=== PATIENT | female | born 1950 | race Caucasian/White ===

== ENCOUNTER 2025-01-27 09:30 | Day surgery (SDC) | payer OTHER, SELFPAY ==
--- NOTE | 2025-01-03 10:49 | CM ---
CM reviewed medical records. CM spoke with patient via phone. Patient confirmed that she lives in [place]. Patient daughter or son will provide supervision.
Patient's son
Rodríguez
[phone]
Patient has had [facility] in the past but cannot remember the agency. Patient has not been to SNF. Patient has a cane and walker. Patient uses [facility] for medication services.
Patient was encouraged to make an outpatient PT appointment. Patient stated that she would prefer [facility] in [place].
Patient stated that she is very nervous and overwhelmed. CM provided emotional support and encouraged further questions as needed.
PLAN: home with outpatient PT, patient pending PA evaluation .
[2025-01-19 11:18] LABS: Hematocrit 32.6 % (37.0-47.0); Hemoglobin 10.6 g/dL (12.0-16.0); Mean Corp Hgb Conc. 32.5 g/dL (33.0-37.0); Mean Corpuscular Hgb 31.6 pg (27.0-31.0); Mean Corpuscular Volume 97.3 fL (81.0-99.0); Mean Platelet Volume 9.2 fL (7.4-10.4); Platelet Count 341 10^3/uL (130-400); Red Blood Cell Count 3.35 10^6/uL (4.20-5.40); Red Cell Dist. Width 14.4 % (11.5-14.5); White Blood Cell Count 6.3 10^3/uL (4.8-10.8)
[2025-01-19 12:03] LABS: ALT (SGPT) 12 U/L (0-35); AST (SGOT) 20 U/L (14-36); Alkaline Phosphatase 72 U/L (38-126); Blood Urea Nitrogen 25 mg/dl (7-17); Calcium 9.9 mg/dl (8.4-10.2); Carbon Dioxide 27 mmol/L (22-30); Chloride 108 mmol/L (98-107); Glucose 95 mg/dl (70-99); Potassium 4.3 mmol/L (3.5-5.1); Sodium 141 mmol/L (135-145); Total Bilirubin 0.3 mg/dl (0.2-1.3); Total Protein 6.4 g/dl (6.3-8.2); eGFR > 60.00
[2025-01-19 18:18] LABS: Reticulocyte Count 1.8 % (0.4-2.8)
[2025-01-19 18:31] LABS: Iron 56 ug/dl (37-170)
[2025-01-19 18:40] LABS: Percent Saturation 16 % (20-50); Total Iron Binding Capacity 342 ug/dl (265-497)
[2025-01-19 20:08] LABS: Folate 3.6 ng/ml (2.76-20); Vitamin B12 > 1000 pg/ml (239-931)
[2025-01-21 12:59] VITALS: BMI 26.3
[2025-01-27] VITALS (19 sets, daily range): BP systolic 97–169; BP diastolic 55–93; PULSE 78; O2SAT 98
[2025-01-27] MEDS: TYLENOL 650 MG PO ×4 (08:49→22:59)
[2025-01-27] MEDS: NORMOSOL-R/PLASMALYTE-A 1000 IV ×3 (08:50→15:57)
--- NOTE | 2025-01-27 11:53 | OR.RPT ---
Operative Report
Operative Report
Orthopaedic Surgery Operative Note
DATE OF OPERATION: 01/27/2025
PREOPERATIVE DIAGNOSES: Osteoarthritis, left hip
POSTOPERATIVE DIAGNOSES: Same
OPERATION PERFORMED: Left total hip arthroplasty.
SURGEON: Robby Hood MD
CINDER SNAPPER: Sarabjit Sanchez PA-C who helped with patient and limb positioning and retraction
ANESTHESIA: General after attempted spinal
COMPLICATIONS: None.
ESTIMATED BLOOD LOSS: 100 mL.
DRAINS: None
SPECIMEN: None
FINDINGS: Advanced articular cartilage wear on the femoral head and acetabulum with femoral head collapse
IMPLANTS:
Biomet G7 Acetabular Shell, cluster hole, size 52
Biomet G7 Highly Crosslinked PE Liner, neutral
Kenroy Acetabular bone screw, 6.5mm x1
Kenroy M/L Taper femoral stem, size 10 with reduced neck length and standard offset
Biolox Ceramic Head, size 36mm +0
INDICATIONS: The patient presented to my office with debilitating left hip pain due to osteoarthritis. We reviewed the natural history of this problem, as well as the risks, benefits, and alternatives of various treatment options. The patient
exhausted all nonoperative treatment options and wished to proceed with hip replacement surgery. The patient understood the risks which included, but were not limited to, bleeding, infection, failure to relieve pain, more pain than preop, damage to
blood vessels and nerves, need for reoperation, mechanical failure of the implants, wound healing problems, stiffness, instability, blood clot, pulmonary embolism, myocardial infarction, pneumonia, arrhythmia, CVA, and . The patient accepted
these risks and wished to proceed. All questions were answered, and informed consent was obtained.
PROCEDURE IN DETAIL: The patient was identified in the preoperative holding area. The left hip was identified as the operative site. The patient was taken in the operating room and transferred to the operative table. General anesthesia was performed
after attempted spinal. IV antibiotics and tranexamic acid were administered. The patient was placed in the lateral position with Stulberg hip positioners. Axillary roll was placed. The down leg was well padded. All bony prominences were well
padded. The operative limb was prepped and draped in the usual sterile fashion.
Time out was performed. A posterolateral approach to the hip was used. The skin incision was centered over the greater trochanter. This was taken down sharply through subcutaneous tissues. Meticulous hemostasis was achieved throughout the case with
electrocautery. We split the fascia david in line with skin incision. I split the gluteus molina bluntly. We cauterized all crossing vessels as we split it. I palpated the sciatic nerve and made sure it was well posterior in the operative field. It
was protected throughout the case.
I performed a partial bursectomy to identify the short external rotators. The gluteus medius and minimus were identified and retracted anteriorly. I incised the piriformis tendon and conjoint tendon at their insertions. These were tagged for later
repair. I then performed a trapezoidal capsulotomy. The edges were tagged for later repair. I referenced the cut edge of the capsular flap to 2 fixed points on the greater trochanter for assistance with recreation of limb length and offset. I then
dislocated the hip posteriorly. I performed a femoral neck osteotomy approximately 5 mm above the lesser trochanter, as per preoperative templating. The femoral head was collapsed and unable to measured for circumference. I placed a curve hohmann
retractor over the anterior lip of the acetabulum between the labrum and the anterior hip capsule. A second retractor was placed inferiorly just distal to the transverse acetabular ligament. There was extensive synovitis which was excised.
Circumferential view of the acetabulum was achieved. I incised the labrum and pulvinar with electrocautery. I started with a 45 mm reamer and reamed down to the medial wall. I then sequentially reamed up to a 51mm reamer. This gave a nice bed of
bleeding bone with excellent column support anteriorly and posteriorly. I impacted the acetabular shell in approximately 40 degrees of abduction and 20 degrees of anteversion. I matched the anteversion of the transverse acetabular ligament. I also
made sure that the anterior rim of the socket was not proud of the anterior wall to minimize the chance of iliopsoas tendinitis. I confirmed the cup was well-seated. I placed 1 ileal screws in the posterior superior quadrant. I then impacted a
neutral liner and confirmed it was well seated with the locking mechanism.
On the femoral side, I use a box osteotome to open the proximal starting point. I found the canal with a Charnley awl and a lateralizing reamer. I then used the Kenroy M/L taper broaches sequentially to prepare the femoral canal. The size 10 came to
a stop at the desired level and had excellent axial and rotational stability. We trialed with a trial ball head. The hip was taken through a complete range of motion. It was noted to be stable in extension without impingement. It was stable in the
position of sleep and in flexion with internal rotation. The limb length and offset were checked compared to the capsular flap and was appropriate.
I removed the trials. I impacted the femoral implant to match the mi'kmaq version. It had excellent axial and rotational stability. Trial ball head was placed, and I reduced the hip and took the hip through a complete range of motion. There was no
impingement in external rotation and extension. Position of sleep was stable. At 90 degrees of flexion and slight adduction, the hip could be internally rotated to 90 degrees with no subluxation. I palpated the sciatic nerve, which was tension free
and unharmed. Based on our capsular flap measurement, we had restored the offset and leg length. The trial ball head was removed, and the final ball head was impacted onto a clean and dry Howard taper. The hip was reduced.
A dilute betadine soak was performed for approximately 3 minutes, and then the hip was copiously irrigated. I repaired the capsule, piriformis, and conjoint tendon with #2 Ethibond to drill holes in the greater trochanter. Local anesthetic was
injected. The fascia david was closed with #1 PDS in running fashion. The subcutaneous tissues were closed with 2-0 PDS in running fashion. The skin was reapproximated with 3-0 Monocryl subcuticular suture. I placed a Prineo dressing followed by a
Mepilex Ag dressing. The patient awoke from anesthesia without difficulty. Sponge and instrument counts were correct x2 at the end of the case.
I was present and participated in the entire procedure. I checked leg length at the ankles after transfer on the bed which was equal. The patient was sent to the recovery room in stable condition.
Cole Hood MD
[2025-01-27] MEDS: DILAUDID 0.5 MG IV ×2 (12:17→12:27)
[2025-01-27] MEDS: DILAUDID 2 MG PO ×2 (12:38→20:09)
[2025-01-27] MEDS: DEMEROL 12.5 MG IV (12:58)
--- NOTE | 2025-01-27 13:49 | W.PN.UPDATE ---
Update Note
Progress Note Update
L hip OA w/ L femur insufficiency fx s/p L VLADIMIR w/ Dr Hood 01/27/25
- Due to fx, while assess TSH, Vit D
DVT prophylaxis - ASA, b/l venous foot pumps
HTN - diet controlled - monitor BP
Chronic diastolic HFpEF - reduce hourly IVF rate to prevent fluid overload
- Daily weight, monitor I&Os
CKD stage 3 - minimize nephrotoxins
GERD
Reported GI ulcer with perforated viscus secondary to Ibuprofen 2022; status post laparotomy
- Continue PPI therapy
- NO NSAIDS
Chronic constipation per records - bowel regimen of MOM HS, Colace, and Senna
- Advise hydration, early mobility as tolerated, minimization of opioids
Peripheral neuropathy - continue Gabapentin
- Consider switch to Lyrica
Ambulatory dysfunction with balance difficulties - on fall precautions
- Work w/ PT and OT as able
Chronic pain syndrome with opioid dependence - pt would prefer to continue Buprenorphine
- Discussed w/ pharmacy pre-op -> will Rx Dilaudid for mod-severe pain prn
- Multimodal pain approach to include Tylenol ATC, home Gabapentin for neuropathic pain, Decadron for inflammation, Lidocaine patches
Iron deficiency anemia - IV iron while inpatient
- Was advised to start PO iron pre-op; will continue upon d/c
- H&H in AM
HLD
Peripheral vascular disease
Nephrolithiasis
Migraines
Benign essential tremor
Multilevel DDD
Stress incontinence
Overactive bladder
Prediabetes, A1C 6.0
Hearing impairment bilaterally
Remote history of tobacco abuse
[2025-01-27] MEDS: LIDOCAINE 4% PATCH 2 PATCH TOPICAL (13:50)
[2025-01-27] MEDS: NEURONTIN 300 MG PO (13:58)
--- NOTE | 2025-01-27 14:30 | PTCARENOTE ---
Pt arrived to floor from PACU in bed. AAO x 3; reports L hip pain 10/10 but is calm and relaxed. Regular apical; Lungs CTA; Surgical Mepilex foam in place on L hip - No drainage noted. IV fluids infusing into LFA INT @ 80mg/hr. Oriented to room,
call centeno within reach. Will continue to monitor and assess.
--- NOTE | 2025-01-27 15:19 | SUR.PHASEI ---
patient with chronic pain, unable to do spinal anesthesia, medicated with dilauidid IV and po and demerol for shivers and pain. Lidocaine patches added. relief with demerol and lido - though still some discomfort. able to sleep.. refuses lunch
at this time. dressing dry . Dr georges to visit. discharge to [address] [place] [address]. hand off at bedside.
[2025-01-27] MEDS: SUBUTEX SL (15:30)
[2025-01-27] MEDS: PROTONIX PO (15:31)
[2025-01-27] MEDS: BUSPAR PO (15:32)
[2025-01-27] MEDS: FERRLECIT 110 MG IV (15:57)
[2025-01-27] MEDS: NEURONTIN 1200 MG PO (16:01)
[2025-01-27] MEDS: DILAUDID 4 MG PO (16:05)
[2025-01-27] MEDS: ASPIRIN 325 MG PO (17:55)
[2025-01-27] MEDS: ANCEF 5 IV (17:55)
[2025-01-27] MEDS: DECADRON 4 MG PO (19:54)
[2025-01-27] MEDS: PROTONIX 40 MG PO (19:54)
[2025-01-27] MEDS: SENOKOT 17.2 MG PO (19:54)
[2025-01-27] MEDS: SUBUTEX 8 MG SL (19:54)
[2025-01-27] MEDS: COLACE 100 MG PO (19:55)
[2025-01-27] MEDS: BACTROBAN 2% OINTMENT 1 APPLIC NASAL (19:55)
[2025-01-27] MEDS: BUSPAR 5 MG PO (19:55)
[2025-01-27] MEDS: LIPITOR 20 MG PO (21:52)
[2025-01-27] MEDS: NEURONTIN 800 MG PO (21:53)
[2025-01-27] MEDS: VITAMIN B-12 1000 MCG PO (21:53)
[2025-01-27] MEDS: VITAMIN D3 (cholecalciferol) 50 MCG PO (21:53)
[2025-01-27 21:57] LABS: TSH Reflex To Free T4 0.17 uIU/ml (0.47-4.68)
[2025-01-27 22:27] LABS: Free T4 1.27 ng/dl (0.78-2.19)
[2025-01-28] MEDS: DILAUDID 2 MG PO ×2 (00:57→05:12)
[2025-01-28] MEDS: ANCEF 5 IV (00:58)
[2025-01-28 03:15] VITALS: BP 120/73
[2025-01-28] MEDS: TYLENOL PO (05:10)
[2025-01-28 06:26] LABS: Hematocrit 23.4 % (37.0-47.0)
[2025-01-28 07:10] VITALS: BP 118/71
[2025-01-28] MEDS: NEURONTIN 1200 MG PO (08:22)
[2025-01-28] MEDS: DECADRON 4 MG PO (08:22)
[2025-01-28] MEDS: PROTONIX 40 MG PO (08:22)
[2025-01-28] MEDS: SENOKOT 17.2 MG PO (08:22)
[2025-01-28] MEDS: TYLENOL 650 MG PO ×2 (08:22→13:40)
[2025-01-28] MEDS: BUSPAR 5 MG PO (08:22)
[2025-01-28] MEDS: SUBUTEX 8 MG SL (08:23)
[2025-01-28] MEDS: BACTROBAN 2% OINTMENT 1 APPLIC NASAL (08:23)
[2025-01-28] MEDS: ASPIRIN 325 MG PO (08:23)
[2025-01-28] MEDS: LIDOCAINE 4% PATCH 2 PATCH TOPICAL (08:23)
[2025-01-28] MEDS: COLACE 100 MG PO (08:23)
--- NOTE | 2025-01-28 09:06 | W.PN.ORTHO ---
Today's Communication / Plan
-
Monitor hgb.
Await PT and OT recs.
Possible d/c for later today pending hgb result and clinical stability.
Assessment
.
Distal Motor Intact: Yes
Dressing:
Clean, dry and intact.
Assessment:
L hip OA w/ L femur insufficiency fx s/p L VLADIMIR w/ Dr Hood 01/27/25
- Due to fx, TSH and Vit D assessed
- Vit D WNL on current supplement dosing
- Low TSH, normal free T4 revealing subclinical hyperthyroidism. Not new per pt. Can repeat outpatient w/ PCP
DVT prophylaxis - ASA, b/l venous foot pumps
HTN - diet controlled - BPs currently stable
Chronic diastolic HFpEF - reduced hourly IVF rate to prevent fluid overload
- Daily weights, monitor I&Os
CKD stage 3 - minimize nephrotoxins
GERD
Reported GI ulcer with perforated viscus secondary to Ibuprofen 2022; status post laparotomy
- Continue PPI therapy
- NO NSAIDS
Chronic constipation per records - bowel regimen of MOM HS, Colace, and Senna
- Advise hydration, early mobility as tolerated, minimization of opioids
Peripheral neuropathy - continue Gabapentin
- Consider switch to Lyrica
Ambulatory dysfunction with balance difficulties - on fall precautions
- Work w/ PT and OT as able
Chronic pain syndrome with opioid dependence - pt would prefer to continue Buprenorphine
- Discussed w/ pharmacy pre-op -> will Rx Dilaudid for mod-severe pain prn
- Multimodal pain approach to include Tylenol ATC, home Gabapentin for neuropathic pain, Decadron for inflammation, Lidocaine patches
- Pt noting relief with Dilaudid this AM
Acute on chronic anemia in setting of iron deficiency, fx - hgb 10.6 pre-op -> 8.0 POD 1
- Repeat H&H later today to rule out hemodilution
- Pt started PO iron as advised pre-op; IV iron while inpatient
- Dressing without acute bleeding
- Denies any recent abnormal bleeding
- Consider transfusion if hgb drops further or if pt hemodynamically unstable
HLD
Peripheral vascular disease
Nephrolithiasis
Migraines
Benign essential tremor
Multilevel DDD
Stress incontinence
Overactive bladder
Prediabetes, A1C 6.0
Hearing impairment bilaterally
Remote history of tobacco abuse
Plan
.
Surgery / Date: Yarelis GILBERT w/ Dr Hood 01/27/25
DVT Prophylaxis: Aspirin
Activity:
Out of bed.
PT/OT
Discharge Plan: Home w/ Outpatient PT
Subjective
.
.:
Patient resting comfortably in bed this AM.
Reports relief with Dilaudid prn for L sided hip pain.
Denies any new acute complaints.
Acute on chronic anemia noted.
Vital Signs and Labs
.
Vital Signs and Labs:
Lab Results
01/19/25 10:42
Temp Pulse Resp BP Pulse Ox
98.7 F 89 18 118/71 97
01/28/25 07:10 01/28/25 07:10 01/28/25 07:10 01/28/25 07:10 01/28/25 07:10
Non-invasive Hgb result: 11.7
Physical Exam
-
HEENT: No pallor, cyanosis, or jaundice. Throat clear.
NECK: Supple. No JVD.
RESPIRATORY: Lungs clear to auscultation.
CVS: S1, S2 normal. RRR.�
ABDOMEN: Soft, non-tender. No distension.
EXTREMITIES: Minimal bruising near incision site. Strength equal, no calf pain with palpation/dorsiflexion. Calves soft.
MATERIAL DISTRIBUTOR: AOx3. No focal deficits. crna grossly intact
--- NOTE | 2025-01-28 09:25 | CM ---
Cm met with patient in room. Patient confirmed that he plan is to stay with her son for a few days post operatively. Patient has an outpatient appointment scheduled and her friend will be able to provide transportation.
PLAN: Home with outpatient PT.
[2025-01-28] MEDS: DILAUDID 4 MG PO ×2 (09:43→13:40)
[2025-01-28 10:05] VITALS: BP 126/61; PULSE 94
[2025-01-28 10:59] VITALS: BP 116/58; PULSE 80
[2025-01-28 11:12] LABS: Hematocrit 26.2 % (37.0-47.0); Hemoglobin 8.7 g/dL (12.0-16.0)
[2025-01-28 11:20] VITALS: BP 111/59
--- NOTE | 2025-01-28 12:21 | W.DS.TRANS ---
DC Summary - [employer]
-
Discharge Instructions:
Discharge Diagnosis/Procedures L hip OA w/ L femur insufficiency fracture s/p L
VLADIMIR w/ Dr Hood 01/27/25
Diet Regular
Additional Diets Adequate hydration, minimize opioids, and wear
TEDs stockings to prevent low blood pressure/
dizziness.
Activity As tolerated,With Walker
Driving Restrictions Not until seen by your Dr
Bathing Restrictions OK to Shower
Blood Work Repeat TSH/Free T4 to be repeated at the
discretion of your primary care physician for
subclinical hyperthyroidism.
CBC without diff on 01/31/2025, with
results to primary care for further anemia
management.
Other Services PT
Wound Care Leave dressing on until seen by surgeon's office
for follow-up in 2 weeks.
Specialty Instructions Weigh Daily
Instructions:
Stand-Alone Forms: Total Hip/Knee Replacement D/C
Changes to Home Medications: Yes
Discharge Medications:
DC Medications w/original date entered in [facility]
buprenorphine HCl 8 mg sublingual tablet 8 mg sublingual BID JEAN CARLOS/PAIN 01/18/25
buspirone 5 mg tablet 5 mg PO BID Mental Health/Anxiety 01/18/25
cholecalciferol (vitamin D3) 50 mcg (2,000 unit) capsule (Vitamin D3) 50 mcg PO HS Supplement 01/18/25
cyanocobalamin (vitamin B-12) 1,000 mcg tablet (Vitamin B-12) 1,000 mcg PO HS Supplement 01/18/25
gabapentin 800 mg tablet 1,200 mg PO BID@0800,1700 Pain 01/18/25
gabapentin 800 mg tablet 800 mg PO HS Pain 01/18/25
omeprazole 40 mg capsule,delayed release 40 mg PO BID GERD 01/18/25
simvastatin 40 mg tablet 40 mg PO HS High Cholesterol 01/18/25
mupirocin 2 % topical ointment 1 applic intranasal BID #1 tube 01/19/25
ferrous sulfate 325 mg (65 mg iron) tablet 325 mg PO DAILY Supplement 01/21/25
acetaminophen 500 mg tablet 1,000 mg (2 x 500 mg) PO Q6H #60 tabs 01/28/25
aspirin 325 mg tablet 325 mg PO DAILY #30 tabs 01/28/25
atenolol 25 mg tablet 25 mg PO HS Blood Pressure #1 tab 01/28/25
celecoxib 200 mg capsule (Celebrex) 200 mg PO DAILY 01/28/25
dexamethasone 4 mg tablet 4 mg PO BID Anti-inflammatory #5 tabs 01/28/25
docusate sodium 100 mg capsule 100 mg PO BID #30 caps 01/28/25
hydromorphone 2 mg tablet 2 - 4 mg (1 - 2 x 2 mg) PO Q6H PRN moderate-severe pain #30 tabs 01/28/25
lidocaine 4 % topical patch 2 patch topical DAILY #30 ea 01/28/25
magnesium hydroxide 400 mg/5 mL oral suspension (Milk of Magnesia) 30 ml PO HS #3,000 mL 01/28/25
ondansetron HCl 4 mg tablet 4 mg PO Q6H PRN nausea and vomiting #30 tabs 01/28/25
sennosides 8.6 mg tablet (Rosario-cherry) 17.2 mg (2 x 8.6 mg) PO BID #30 tabs 01/28/25
Home Medication Changes
ferrous sulfate 325 mg (65 mg iron) tablet 325 mg PO DAILY Supplement 01/21/25
acetaminophen 500 mg tablet 1,000 mg (2 x 500 mg) PO Q6H #60 tabs 01/28/25
aspirin 325 mg tablet 325 mg PO DAILY #30 tabs 01/28/25
dexamethasone 4 mg tablet 4 mg PO BID Anti-inflammatory #5 tabs 01/28/25
docusate sodium 100 mg capsule 100 mg PO BID #30 caps 01/28/25
hydromorphone 2 mg tablet 2 - 4 mg (1 - 2 x 2 mg) PO Q6H PRN moderate-severe pain #30 tabs 01/28/25
lidocaine 4 % topical patch 2 patch topical DAILY #30 ea 01/28/25
magnesium hydroxide 400 mg/5 mL oral suspension (Milk of Magnesia) 30 ml PO HS #3,000 mL 01/28/25
ondansetron HCl 4 mg tablet 4 mg PO Q6H PRN nausea and vomiting #30 tabs 01/28/25
sennosides 8.6 mg tablet (Rosario-cherry) 17.2 mg (2 x 8.6 mg) PO BID #30 tabs 01/28/25
Pending Results: No
[2025-01-28] MEDS: FERRLECIT 110 MG IV (13:40)
--- NOTE | 2025-01-28 13:45 | PTCARENOTE ---
Discharge orders received; PT/OT signed off. CM s/w pt. Discharge instructions reviewed with pt, all questions answered. Home meds being held in pharmacy obtained and returned to Pt. IV removed. D/c'd to home.
--- NOTE | 2025-01-28 14:41 | W.PN.UPDATE ---
Update Note
Progress Note Update
Late entry - repeat hgb stabilized at 8.7. Hgb pre-op 10.6. Anemia in the setting of iron deficiency and fx.
Pt notably asymptomatic and hemodynamically stable.
No reported issues with PT or OT.
Pt will continue oral iron upon d/c. She received 2 IV iron infusions during admission.
She will have a repeat CBC drawn Friday, 01/31 with results to PCP for further anemia management.
Stable for d/c today
[2025-01-28 15:02] VITALS: BP 118/73
== END 2025-01-28 15:45 | disposition home or self-care (01) ==
LOC: PACU 09:30
PROVIDERS: Physician Assistant; ATTENDING PHYSICIAN Orthopaedic Surgery; FAMILY PHYSICIAN Internal Medicine
PROC: 0SRB03A Replacement of Left Hip Joint with Ceramic Synthetic Substitute, Uncemented, Open Approach (ICD-10-PCS; 2025-01-27)
DX: M16.12 Unilateral primary osteoarthritis, left hip (principal); M84.452A Pathological fracture, left femur, initial encounter for fracture; I13.0 Hypertensive heart and chronic kidney disease with heart failure and stage 1 through stage 4 chronic kidney disease, or unspecified chronic kidney disease; I50.32 Chronic diastolic (congestive) heart failure; F11.20 Opioid dependence, uncomplicated; N18.30 Chronic kidney disease, stage 3 unspecified; K21.9 Gastro-esophageal reflux disease without esophagitis; K59.09 Other constipation; G62.9 Polyneuropathy, unspecified; G89.4 Chronic pain syndrome; D50.9 Iron deficiency anemia, unspecified; Z87.891 Personal history of nicotine dependence
CPT/HCPCS: 27130; 36415; 73502; 80053; 82306; 82607; 82728; 82746; 83036; 83540; 83550; 84439; 84443; 85014; 85018; 85027; 85045; 86850; 86900; 86901; 87070; 97110; 97116; 97162; 97166; 97530; 97535; C1713; C1776; J2916

== ENCOUNTER 2025-03-02 10:41 | Emergency (ER) | payer OTHER, SELFPAY ==
[2025-03-02] VITALS (51 sets, daily range): BP systolic 92–142; BP diastolic 46–94; BMI 26.7
--- NOTE | 2025-03-02 10:59 | ED.GENMED ---
History of Present Illness
General
Chief Complaint: Musculo-Skeletal Complaint
Source: patient
Exam Limitations: none
Time Seen by Provider: 03/02/25 10:46
Nursing documentation reviewed up to this point in time: agreed with
History of Present Illness
History of Present Illness:
Patient status post left hip replacement 1 month ago, presents to ED secondary to left hip pain, when she fell down this morning. Patient states that she had bent down to shave her legs and may have pivoted too quickly, causing her to fall onto her
left hip. Denies hitting her head or any other injuries. Denies loss of sensation or weakness. Patient presents with obvious deformity of affected left leg.
Review of Systems
Review of Systems
Allergies reviewed?: Yes
All Other Systems: ROS reviewed and negative except as documented in HPI and ROS
Constitutional: Reports no symptoms
Musculoskeletal: Reports other (Hip pain)
Skin: Reports no symptoms
Neurological: Reports no symptoms
Phy Exam
Physical Exam
Physical Exam:
Physical Exam
General: mild painful distress, not acutely ill. afebrile
Head: nc/at. eomi
Neck: supple. normal range of motion.
Neuro: alert and oriented x 3. no focal neurological deficits
Skin: no rash
Psychiatric: well kept. interactive and cooperative
Extremities: left lower leg shortened and rotated with moderate tenderness with palpation of hip
Course
Orders/Labs/Results
Orders:
Orders
03/02/25 10:52
Type+Screen Urgent
BBK Wristband Number:
Complete Blood Count/With Diff Urgent
Comprehensive Metabolic Panel Urgent
03/02/25 10:58
Fentanyl Citrate/Pf [Sublimaze] 50 mcg IV NOW STA
CR Hip - LT w/wo Pel 2-3 Vw* Urgent
Comment:
Reason For Exam: trauma w recent hip sx
Include a pelvis x-ray?: Yes
03/02/25 11:52
Propofol [Diprivan] 20 ml .ROUTE .STK-MED
03/02/25 12:21
CR Hip - LT without Pel 1 Vw Urgent
Comment:
Reason For Exam: post hip reduction
Abnormal Lab Results
03/02/25
10:52
RBC 3.15 L 10^6/uL
(4.20-5.40)
Hgb 9.9 L g/dL
(12.0-16.0)
Hct 31.0 L %
(37.0-47.0)
MCH 31.4 H pg
(27.0-31.0)
MCHC 31.9 L g/dL
(33.0-37.0)
Absolute Lymphs (auto) 0.8 L 10^3/uL
(1.2-3.4)
Lymphocytes % 13.9 L %
(20.5-51.1)
BUN 25 H mg/dl
(7-17)
Glucose 103 H mg/dl
(70-99)
03/02/25 10:52
03/02/25 10:52
Vital Signs
Initial and Last Documented VS:
Initial Vital Signs
Pulse Resp Pulse Ox
65 13 97
03/02/25 10:52 03/02/25 10:52 03/02/25 10:52
Last Documented Vital Signs
Temp Pulse Resp BP Pulse Ox
97.7 F 66 14 99/51 94
03/02/25 13:07 03/02/25 15:00 03/02/25 15:00 03/02/25 15:00 03/02/25 15:00
Procedures
Moderate Sedation
ASA Risk Score: Class I
Chart and allergies reviewed: Yes
Consent for anesthesia obtained: Yes
Time out completed (validating right patient & procedure): Yes
Moderate Sedation Start Time(when first medication is given): 12:14
History of difficult intubation: No
Airway free of obstruction: Yes
Patient has a gag reflex: Yes
Patient is able to open mouth: Yes
Patient has no dentures: Yes
Patient has no loose teeth: Yes
Medication administered by Provider during Moderate Sedation: IV Propofol (mg)
Total dose administered: 30
Time drug administered: 12:14
Moderate Sedation Procedure End Time: 12:24
Joint/Fracture Reduction
Left Hip:
Indication for procedure:: Hip dislocation
Procedure completed by: Bertram Merino M.D.
Consent form signed: Yes
Joint reduced: with anesthesia sedation
Anesthesia/sedation: Moderate sedation
Injury was: closed
Further treatement: no treatment needed
Post reduction exam: stable
Capillary Refill: normal
Normal distal neurovascular exam?: Yes
MDM/Problems Addressed
MDM/Problems Addressed:
History, exam, and x-ray consistent with left hip dislocation.
Procedure consent on the chart.
Hip successfully reduced after moderate sedation, confirmed via repeat x-ray. Knee immobilizer placed afterwards.
, orthopaedic surgery, notified via [employer].
Patient will be referred to her orthopedic surgeon () for an outpatient evaluation.
*Pulse Oximetry
SaO2: 98
Oxygen Mode of Delivery: Room air
Patient hypoxic: no
*Critical Care Note
Total Time (30-74mins, 75-104mins- exclusive of procedures): Not Applicable
ED Attending Note
-
Portions of this chart may have been created with voice recognition software.� Occasional wrong word or��sound alike� substitutions may have occurred due to the inherent limitations of voice recognition software.
Discharge Plan
Departure
Patient Disposition: Home (Routine Discharge)
Date of Disposition: 03/02/25
Time of Disposition: 12:50
Patient with high blood pressure during this ER visit?: Yes
Discharge Problem:
Dislocation, hip
Instructions: Knee Immobilizer (DC), Hip Dislocation (DC), MODERATE SEDATION ADULT
Prescriptions:
No Action
buspirone 5 mg Tablet
5 mg PO BID
cyanocobalamin (vitamin B-12) [Vitamin B-12] 1,000 mcg Tablet
1,000 mcg PO HS
omeprazole 40 mg Capsule,Delayed Release(Dr/Ec)
40 mg PO BID
simvastatin 40 mg Tablet
40 mg PO HS
gabapentin 800 mg Tablet
800 mg PO HS
buprenorphine HCl 8 mg Tablet, Sublingual
8 mg SUBLINGUAL BID
cholecalciferol (vitamin D3) [Vitamin D3] 50 mcg (2,000 unit) Capsule
50 mcg PO HS
gabapentin 800 mg Tablet
1,200 mg PO BID@0800,1700
mupirocin 2 % ointment
1 applic intranasal BID Qty: 1 0RF
Patient Comments:
started this 3 days ago- last dose was this am.
ferrous sulfate 325 mg (65 mg iron) Tablet
325 mg PO DAILY
aspirin 325 mg Tablet
325 mg PO DAILY Qty: 30 0RF
Rx Instructions:
Take daily x4 weeks for blood clot prevention; then resume Aspirin 81 mg daily.
dexamethasone 4 mg Tablet
4 mg PO BID Qty: 5 0RF
Rx Instructions:
Restart night of discharge and continue twice a day until finished.
Take with food.
docusate sodium 100 mg Capsule
100 mg PO BID Qty: 30 0RF
hydromorphone 2 mg Tablet
2 - 4 mg PO Q6H PRN (Reason: moderate-severe pain) Qty: 30 0RF
Rx Instructions:
1 tab for moderate pain, 2 if severe.
Dx total joint.
lidocaine 4 % Adhesive Patch,Medicated
2 patch topical DAILY Qty: 30 0RF
Rx Instructions:
Over the counter. 12 hour on, 12 hour off.
Apply to sides of left hip/thigh.
magnesium hydroxide [Milk of Magnesia] 400 mg/5 mL Suspension
30 ml PO HS Qty: 3000 0RF
sennosides [Rosario-cherry] 8.6 mg Tablet
17.2 mg PO BID Qty: 30 0RF
ondansetron HCl 4 mg tablet
4 mg PO Q6H PRN (Reason: nausea and vomiting) Qty: 30 0RF
acetaminophen 500 mg Tablet
1,000 mg PO Q6H Qty: 60 0RF
Rx Instructions:
DO NOT exceed >4000 mg daily.
atenolol 25 mg Tablet
25 mg PO HS Qty: 1 0RF
Rx Instructions:
HOLD IF systolic blood pressure <100 while on Dilaudid.
Referrals:
Renetta Tang DO [Family Provider]
Robby Hood MD [Active, Orthopedics]
Activity Restrictions/Additional Instructions:
As discussed, please follow-up with your orthopedic surgeon for reevaluation.
Interventions
Interventions:
*Risk Screen - Suicide Last Done: 03/02/25 11:10
*General Assessment Last Done: 03/02/25 11:10
*Neglect/Abuse Screening Last Done: 03/02/25 11:10
*ED- Fall Risk Assessment Last Done: 03/02/25 11:10
*ED COVID-19 Vaccine History Last Done: 03/02/25 11:10
ED-Musculoskeletal Assessment Last Done: 03/02/25 11:03
Discharge Date and Time
Print Language: CROATIAN
[2025-03-02] MEDS: SUBLIMAZE 50 MCG IV (11:01)
[2025-03-02 11:02] LABS: Hematocrit 31.0 % (37.0-47.0); Hemoglobin 9.9 g/dL (12.0-16.0); Mean Corp Hgb Conc. 31.9 g/dL (33.0-37.0); Mean Corpuscular Volume 98.4 fL (81.0-99.0); Nucleated Red Blood Cells % 0 %; Platelet Count 296 10^3/uL (130-400); Red Cell Dist. Width 12.4 % (11.5-14.5)
[2025-03-02 11:30] LABS: ALT (SGPT) 11 U/L (0-35); AST (SGOT) 26 U/L (14-36); Albumin 3.8 g/dl (3.5-5.0); Alkaline Phosphatase 85 U/L (38-126); Blood Urea Nitrogen 25 mg/dl (7-17); Calcium 9.5 mg/dl (8.4-10.2); Carbon Dioxide 25 mmol/L (22-30); Chloride 106 mmol/L (98-107); Estimated Creatinine Clearance 52 ml/min; Glucose 103 mg/dl (70-99); Potassium 4.7 mmol/L (3.5-5.1); Sodium 136 mmol/L (135-145); Total Protein 6.3 g/dl (6.3-8.2); eGFR > 60.00
== END 2025-03-02 16:01 | disposition home or self-care (01) ==
LOC: EMR 10:41
PROVIDERS: EMERGENCY PHYSICIAN Emergency Medicine; FAMILY PHYSICIAN Internal Medicine
DX: T84.021A Dislocation of internal left hip prosthesis, initial encounter (principal); Y79.2 Prosthetic and other implants, materials and accessory orthopedic devices associated with adverse incidents
CPT/HCPCS: 99283; 27250; 73501; 73502; 80053; 85025; 86850; 86900; 86901